=== PATIENT | female | born 1975 | race Caucasian/White ===

== ENCOUNTER → 2017-01-19 | Outpatient (CLI) | payer BC ==
[~2017-01-19] MED LIST: ALLEGRA DPS180 MG PO; ALPHA LIPOIC A200 MG PO; CIPRO DPS500 MG PO; DESYREL DPS100 MG PO; FLAGYL-DPS500 MG PO; FOLIC ACID0.8 M1 PO; GLUCOPHAGE1000 MG PO; GLUCOSAMINE/CHO1 TAB PO; HYDROCODON-ACE1 EAC6 PO; KLONOPIN DPS1 MG PO; LEVOTHYROXINE88 MCG PO; LEXAPRO DPS10 MG PO; LUTEIN20 MG PO; MAGNESIUM250 M1 PO; MILK THISTLE140 M1 PO; MONTELUKAST SOD10 MG PO; POTASSIUM99 MG PO; PROBIOTIC1 EAC1 PO; SUDAFED PE10 MG PO; TURMERIC500 MG PO; VITAMIN A10000 UNI1 PO; VITAMIN B1100 MG PO; VITAMIN B122500 MCG PO; VITAMIN D31000 UNIT PO; ZANAFLEX4 MG PO
== END | disposition home or self-care (01) ==
LOC: RAD.S 01-09 13:00
DX: D73.1 Hypersplenism (principal); R16.2 Hepatomegaly with splenomegaly, not elsewhere classified